=== PATIENT | female | born 1945 | race Caucasian/White ===

== ENCOUNTER 2017-09-01 16:55 | Inpatient (IN) | payer MEDICARE, SELFPAY ==
[2017-09-01] MEDS ORDERED: ACETAMINOPHEN 500 MG TAB PO (18:15)
[2017-09-01] MEDS ORDERED: BISACODYL 10 MG SUPP PR (18:15)
[2017-09-01] MEDS ORDERED: ONDANSETRON 4MG/2ML VIAL (J2405) IV (18:15)
[2017-09-01] MEDS: SINEMET 25-100 MG TAB PO (21:19)
[2017-09-01] MEDS: DOCUSATE SODIUM 100 MG CAP PO (21:19)
[2017-09-01] MEDS: PRAMIPEXOLE 1 MG TAB PO (21:19)
[2017-09-01] MEDS: AMANTADINE 100 MG CAP PO (21:19)
[2017-09-01] MEDS: SENOKOT S TAB PO (21:19)
[2017-09-01] MEDS: ENTACAPONE 200MG TABLET (COMTAN) PO (21:20)
[2017-09-01] MEDS: MORPHINE 4 MG/ML 1ML VIAL/SYRINGE (J2270) IV (21:50)
[2017-09-02 06:10] LABS: BASO % 0.4 % (0.0-1.0); EOS # 0.1 10^3/uL (0.0-0.50); EOS % 1.1 % (0.0-3.0); HEMATOCRIT 39.7 % (36.0-47.0); HEMOGLOBIN 13.9 g/dl (12.0-15.5); IMMATURE GRANULOCYTE % 0.9 % (0-3.0); LYMPH # 1.6 10^3/uL (1.5-4.5); LYMPH % 19.2 % (24.0-44.0); MEAN CORPUSCULAR HEMOGLOBIN 29.8 pg (27.0-33.0); MONO # 0.9 10^3/uL (0.0-0.8); MONO % 10.9 % (0.0-5.0); NEUTROPHILS # 5.5 10^3/uL (1.8-7.7); NEUTROPHILS % 67.5 % (36.0-66.0); PLATELET COUNT, AUTOMATED 367 10^3/uL (150-450); RED BLOOD COUNT 4.67 10^6/uL (4.00-5.40); RED CELL DISTRIBUTION WIDTH 12.1 % (11.5-14.5); WHITE BLOOD COUNT 8.1 10^3/uL (4.0-10.0)
[2017-09-02 06:24] LABS: AMMONIA 16 uMOL/L (<32)
[2017-09-02 06:33] LABS: ALBUMIN 2.7 GM/DL (3.2-5.2); ALBUMIN/GLOBULIN RATIO 0.71 (1.00-1.93); ALKALINE PHOSPHATASE 103 U/L (45-117); ALT/SGPT < 6 U/L (12-78); ANION GAP 9 MEQ/L (8-16); AST/SGOT 15 U/L (7-37); BILIRUBIN,TOTAL 0.8 MG/DL (0.2-1.0); BLOOD UREA NITROGEN 14 MG/DL (7-18); CARBON DIOXIDE LEVEL 27 MEQ/L (21-32); CHLORIDE LEVEL 106 MEQ/L (98-107); CREATININE FOR GFR 0.88 MG/DL (0.55-1.30); GLOMERULAR FILTRATION RATE > 60.0 (>39); GLUCOSE, FASTING 89 MG/DL (70-100); POTASSIUM SERUM 4.1 MEQ/L (3.5-5.1); SODIUM LEVEL 142 MEQ/L (136-145); TOTAL PROTEIN 6.5 GM/DL (6.4-8.2)
[2017-09-02 09:17] LABS: APPEARANCE, URINE CLEAR (CLEAR); BACTERIA, URINE AUTO NEGATIVE (NEGATIVE); BILIRUBIN, URINE AUTO NEGATIVE (NEGATIVE); BLOOD, URINE BLOOD NEGATIVE (NEGATIVE); COLOR, URINE YELLOW (YELLOW); GLUCOSE, URINE (UA) AUTO NEGATIVE (NEGATIVE); KETONE, URINE AUTO 1+ mg/dL (NEGATIVE); LEUKOCYTE ESTERASE, URINE AUTO NEGATIVE (NEGATIVE); MUCUS, URINE SMALL (NEGATIVE); NITRITE, URINE AUTO NEGATIVE (NEGATIVE); PROTEIN, URINE AUTO NEGATIVE (NEGATIVE); RBC, URINE AUTO 2 /HPF (0-3); SPECIFIC GRAVITY URINE AUTO 1.013 (1.002-1.035); SQUAMOUS EPITHELIAL CELL UR AU 0 /HPF (0-6); UROBILINOGEN, URINE AUTO 0.2 mg/dL (0.0-2.0); WBC, URINE AUTO 1 /HPF (0-3)
[2017-09-02] MEDS: PRAMIPEXOLE 1 MG TAB PO (10:36)
[2017-09-02] MEDS: LACTULOSE 20 GM/30 ML SYRUP UD PO (10:36)
[2017-09-02] MEDS: DOCUSATE SODIUM 100 MG CAP PO (10:36)
[2017-09-02] MEDS: ENOXAPARIN 40 MG/0.4 ML SYRINGE (J1650) SC (10:36)
[2017-09-02] MEDS: SENOKOT S TAB PO (10:37)
[2017-09-02] MEDS: AMANTADINE 100 MG CAP PO (10:37)
[2017-09-02] MEDS: ENTACAPONE 200MG TABLET (COMTAN) PO (10:37)
[2017-09-02] MEDS: SINEMET 25-100 MG TAB PO (10:46)
[2017-09-02 13:15] LABS: CPK CREATINE PHOSPHOKINASE 29 U/L (26-192); MB/CK RELATIVE INDEX 6.89 (< OR =4); TROPONIN I 0.33 NG/ML (< 0.10)
[2017-09-02] MEDS ORDERED: NITROGLYCERIN 0.4 MG SUBL TABLET As Ordered (15:08)
[2017-09-02] MEDS: NITROGLYCERIN 0.3 MG SUBL TAB SL (15:11)
[2017-09-02] MEDS ORDERED: HEPARIN SOD (PORCINE) 5000 UNITS/ML VIAL IV (15:30)
[2017-09-02] MEDS ORDERED: HEPARIN 25,000 UNITS/250 ML D5W BAG (100 UNITS/ML) As Ordered (15:32)
[2017-09-02 15:36] LABS: CK-MB VALUE MASS 15.5 NG/ML (<3.6); CPK CREATINE PHOSPHOKINASE 108 U/L (26-192); MB/CK RELATIVE INDEX 14.35 (< OR =4)
[2017-09-02] MEDS: NS 1,000 ML IV (15:38)
[2017-09-02] MEDS: HEPARIN DRIP 25,000 UNITS in APPROPRIATE DILUENT 1 EA IV (15:39)
[2017-09-02] MEDS: HEPARIN SOD (PORCINE) 5000 UNITS/ML VIAL IV (15:40)
[2017-09-02 15:42] LABS: TROPONIN I 3.82 NG/ML (< 0.10)
[2017-09-02] MEDS ORDERED: NOREPINEPHRINE 4 MG/4 ML AMP As Ordered (15:49)
[2017-09-02] MEDS ORDERED: MORPHINE 4 MG/ML 1ML VIAL/SYRINGE (J2270) IV (16:15)
[2017-09-02] MEDS: MORPHINE 4 MG/ML 1ML VIAL/SYRINGE (J2270) IV (16:15)
[2017-09-02] MEDS ORDERED: LACTULOSE 20 GM/30 ML SYRUP UD PO (18:00)
== END 2017-09-02 16:38 | disposition short-term general hospital (02) | DRG 91 ==
LOC: M MSPAV 16:55
DX: G92 Toxic encephalopathy (principal); I21.4 Non-ST elevation (NSTEMI) myocardial infarction; N39.0 Urinary tract infection, site not specified; G20 Parkinson's disease; N20.0 Calculus of kidney; T42.8X5A Adverse effect of antiparkinsonism drugs and other central muscle-tone depressants, initial encounter; T48.205A Adverse effect of unspecified drugs acting on muscles, initial encounter; N28.1 Cyst of kidney, acquired; K59.00 Constipation, unspecified; Z79.899 Other long term (current) drug therapy; Z88.1 Allergy status to other antibiotic agents; Z88.8 Allergy status to other drugs, medicaments and biological substances; Z91.010 Allergy to peanuts

== ENCOUNTER 2017-09-05 13:40 | Inpatient (IN) | payer MEDICARE ==
[~2017-09-05 13:40] MED LIST: BISACODYL 10 MG SUPP PR; BISACODYL 5 MG TAB PO; ENTACAPONE 200MG TABLET (COMTAN) PO; IBUPROFEN 400 MG TAB PO; MIRALAX *UNIT DOSE* 17GM PACKET PO; MOM 30ML SUSPENSION UDC PO; NITROGLYCERIN 0.4 MG SUBL TABLET SL; ONDANSETRON 4 MG TAB (S0181) PO; SINEMET 25-100 MG TAB PO
[2017-09-05] MEDS ORDERED: PRAMIPEXOLE 0.25 MG TAB PO (16:00)
[2017-09-05] MEDS ORDERED: SINEMET 25-100 MG TAB PO ×2 (16:00)
[2017-09-05] MEDS ORDERED: PRAMIPEXOLE 1 MG TAB PO (16:00)
[2017-09-05] MEDS ORDERED: PILL CRUSHER/CUTTER 1 EACH XX (16:30)
[2017-09-05] MEDS: SINEMET 25-100 MG TAB PO ×2 (16:39→20:40)
[2017-09-05] MEDS: BISACODYL 5 MG TAB PO (16:40)
[2017-09-05] MEDS: MIRALAX *UNIT DOSE* 17GM PACKET PO (16:40)
[2017-09-05] MEDS: PRAMIPEXOLE 0.25 MG TAB PO (17:56)
[2017-09-05] MEDS: ENTACAPONE 200MG TABLET (COMTAN) PO ×2 (17:57→20:40)
[2017-09-05 20:11] LABS: KETONE, URINE AUTO RFX NEGATIVE (NEGATIVE); MUCUS, URINE RFX SMALL (NEGATIVE); NITRITE, URINE AUTO RFX NEGATIVE (NEGATIVE); RBC, URINE AUTO RFX 3 /HPF (0-3); SPECIFIC GRAVITY UR AUTO RFX 1.025 (1.002-1.035); SQUAM EPITHELIAL CELL UR AURFX 5 /HPF (0-6)
[2017-09-05 20:12] LABS: LEUKOCYTE ESTERASE UR AUTO RFX 2+ (NEGATIVE); WBC, URINE AUTO RFX 12 /HPF (0-3)
[2017-09-05] MEDS: FAMOTIDINE 20 MG TAB PO (20:40)
[2017-09-05] MEDS: ATORVASTATIN 20 MG TAB PO (20:40)
[2017-09-05] MEDS: NITROFURANTOIN (MACROBID) 100 MG CAP PO (20:40)
[2017-09-05] MEDS: ACETAMINOPHEN TAB 650MG DOSE (2X325MG) PO (20:41)
[2017-09-05] MEDS ORDERED: AMANTADINE 100 MG CAP PO (21:00)
[2017-09-05] MEDS: ONDANSETRON 4 MG ORAL DISINTEGRATING TAB (Q0162 PER 1MG) SL (21:08)
[2017-09-06] MEDS: PRAMIPEXOLE 0.25 MG TAB PO (06:00)
[2017-09-06] MEDS: ENTACAPONE 200MG TABLET (COMTAN) PO (06:00)
[2017-09-06] MEDS: SINEMET 25-100 MG TAB PO (06:00)
[2017-09-06] MEDS: ONDANSETRON 4 MG ORAL DISINTEGRATING TAB (Q0162 PER 1MG) SL (06:00)
[2017-09-06 06:41] LABS: BASO % 0.4 % (0.0-1.0); EOS # 0.1 10^3/uL (0.0-0.50); EOS % 1.1 % (0.0-3.0); HEMATOCRIT 41.5 % (36.0-47.0); HEMOGLOBIN 14.2 g/dl (12.0-15.5); IMMATURE GRANULOCYTE % 0.8 % (0-3.0); LYMPH # 1.6 10^3/uL (1.5-4.5); LYMPH % 16.5 % (24.0-44.0); MEAN CORPUSCULAR HEMOGLOBIN 29.7 pg (27.0-33.0); MEAN CORPUSCULAR HGB CONC 34.2 g/dl (32.0-36.5); MEAN CORPUSCULAR VOLUME 86.8 fl (80.0-96.0); MONO # 0.7 10^3/uL (0.0-0.8); MONO % 7.2 % (0.0-5.0); NEUTROPHILS # 7.1 10^3/uL (1.8-7.7); PLATELET COUNT, AUTOMATED 466 10^3/uL (150-450); RED BLOOD COUNT 4.78 10^6/uL (4.00-5.40); RED CELL DISTRIBUTION WIDTH 12.2 % (11.5-14.5); WHITE BLOOD COUNT 9.6 10^3/uL (4.0-10.0)
[2017-09-06 06:58] LABS: ALBUMIN 2.7 GM/DL (3.2-5.2); ALBUMIN/GLOBULIN RATIO 0.55 (1.00-1.93); ALKALINE PHOSPHATASE 97 U/L (45-117); ALT/SGPT 11 U/L (12-78); ANION GAP 10 MEQ/L (8-16); AST/SGOT 21 U/L (7-37); BILIRUBIN,TOTAL 0.7 MG/DL (0.2-1.0); BLOOD UREA NITROGEN 28 MG/DL (7-18); CALCIUM LEVEL 8.7 MG/DL (8.8-10.2); CARBON DIOXIDE LEVEL 26 MEQ/L (21-32); CHLORIDE LEVEL 107 MEQ/L (98-107); CREATININE FOR GFR 0.91 MG/DL (0.55-1.30); GLOMERULAR FILTRATION RATE > 60.0 (>39); GLUCOSE, FASTING 106 MG/DL (70-100); POTASSIUM SERUM 3.5 MEQ/L (3.5-5.1); SODIUM LEVEL 143 MEQ/L (136-145); TOTAL PROTEIN 7.6 GM/DL (6.4-8.2)
[2017-09-06] MEDS ORDERED: NITROGLYCERIN 0.4 MG SUBL TABLET SL (07:45)
[2017-09-06] MEDS: CALCIUM CARBONATE 500 MG CHEW U/D PO (07:46)
[2017-09-06 08:53] LABS: TROPONIN I 1.08 NG/ML (< 0.10)
[2017-09-06] MEDS: NITROFURANTOIN (MACROBID) 100 MG CAP PO (09:56)
[2017-09-06] MEDS: ASPIRIN 81 MG ENTERIC TAB PO (09:56)
[2017-09-06] MEDS: POTASSIUM CHLORIDE 10 MEQ SR TABLET PO (09:56)
[2017-09-06] MEDS: CLOPIDOGREL 75 MG TAB PO (09:56)
[2017-09-06] MEDS: DOCUSATE SODIUM 100 MG CAP PO (09:56)
[2017-09-06] MEDS: CYANOCOBALAMIN 500 MCG TAB PO (09:56)
[2017-09-06] MEDS: MIRALAX *UNIT DOSE* 17GM PACKET PO (09:57)
[2017-09-06] MEDS: VITAMIN D 1,000 INTERNATIONAL UNITS TABLET PO (09:57)
[2017-09-06] MEDS: FAMOTIDINE 20 MG TAB PO (09:57)
== END 2017-09-06 10:38 | disposition short-term general hospital (02) | DRG 56 ==
LOC: M PM&R 13:40
DX: G20 Parkinson's disease (principal); I21.3 ST elevation (STEMI) myocardial infarction of unspecified site; N39.0 Urinary tract infection, site not specified; I51.81 Takotsubo syndrome; K59.09 Other constipation; E87.6 Hypokalemia; R41.0 Disorientation, unspecified; R13.10 Dysphagia, unspecified; M54.5 Low back pain; R53.81 Other malaise; I70.0 Atherosclerosis of aorta; R26.81 Unsteadiness on feet; R44.1 Visual hallucinations; K21.9 Gastro-esophageal reflux disease without esophagitis; I25.10 Atherosclerotic heart disease of native coronary artery without angina pectoris; J30.9 Allergic rhinitis, unspecified; E78.5 Hyperlipidemia, unspecified; Z79.82 Long term (current) use of aspirin; Z88.1 Allergy status to other antibiotic agents; Z88.8 Allergy status to other drugs, medicaments and biological substances; Z91.010 Allergy to peanuts; Z79.899 Other long term (current) drug therapy; Z98.1 Arthrodesis status

== ENCOUNTER 2017-09-06 10:42 | Inpatient (IN) | payer MEDICARE ==
[~2017-09-06 10:42] MED LIST changes: -BISACODYL 10 MG SUPP PR; -BISACODYL 5 MG TAB PO; -ENTACAPONE 200MG TABLET (COMTAN) PO; -IBUPROFEN 400 MG TAB PO; -MOM 30ML SUSPENSION UDC PO; -NITROGLYCERIN 0.4 MG SUBL TABLET SL; -ONDANSETRON 4 MG TAB (S0181) PO; -SINEMET 25-100 MG TAB PO
[2017-09-06 11:28] LABS: TROPONIN I 1.13 NG/ML (< 0.10)
[2017-09-06] MEDS: CALCIUM CARBONATE 500 MG CHEW U/D PO ×2 (12:42→17:03)
[2017-09-06] MEDS: ENOXAPARIN 80 MG/0.8 ML SYRINGE (J1650) SC (12:42)
[2017-09-06] MEDS: PRAMIPEXOLE 0.25 MG TAB PO ×3 (12:42→21:37)
[2017-09-06] MEDS: ONDANSETRON 4MG/2ML VIAL (J2405) IV ×2 (12:42→18:08)
[2017-09-06] MEDS: ENTACAPONE 200MG TABLET (COMTAN) PO ×3 (12:43→20:39)
[2017-09-06] MEDS: SINEMET 25-100 MG TAB PO ×3 (12:43→20:39)
[2017-09-06] MEDS: METOPROLOL TART 12.5 MG PER 1/2 TAB PO ×2 (12:43→17:04)
[2017-09-06] MEDS: PANTOPRAZOLE 40MG TAB (PROTONIX) PO (12:43)
[2017-09-06 13:27] LABS: CK-MB VALUE MASS 2.9 NG/ML (<3.6); CPK CREATINE PHOSPHOKINASE 60 U/L (26-192); MB/CK RELATIVE INDEX 4.83 (< OR =4)
[2017-09-06] MEDS: MIRALAX *UNIT DOSE* 17GM PACKET PO (18:07)
[2017-09-06] MEDS: SENOKOT S TAB PO (18:07)
[2017-09-06 20:32] LABS: CK-MB VALUE MASS 2.2 NG/ML (<3.6); CPK CREATINE PHOSPHOKINASE 49 U/L (26-192); MB/CK RELATIVE INDEX 4.48 (< OR =4); TROPONIN I 0.92 NG/ML (< 0.10)
[2017-09-06] MEDS ORDERED: AMANTADINE 100 MG CAP PO (21:00)
[2017-09-06] MEDS: ATORVASTATIN 20 MG TAB PO (21:36)
[2017-09-06] MEDS: DOCUSATE SODIUM 100 MG CAP PO (21:36)
[2017-09-06] MEDS: QUEtiapine FUMARATE 25 MG TAB PO (21:37)
[2017-09-07] MEDS: ENOXAPARIN 60 MG/0.6 ML SYR (J1650) SC ×3 (00:05→23:00)
[2017-09-07] MEDS: ONDANSETRON 4MG/2ML VIAL (J2405) IV (01:00)
[2017-09-07 04:43] LABS: BASO % 0.4 % (0.0-1.0); EOS # 0.1 10^3/uL (0.0-0.50); HEMATOCRIT 40.3 % (36.0-47.0); HEMOGLOBIN 13.8 g/dl (12.0-15.5); IMMATURE GRANULOCYTE % 0.7 % (0-3.0); LYMPH # 1.6 10^3/uL (1.5-4.5); LYMPH % 17.7 % (24.0-44.0); MEAN CORPUSCULAR HEMOGLOBIN 29.8 pg (27.0-33.0); MEAN CORPUSCULAR HGB CONC 34.2 g/dl (32.0-36.5); MONO # 0.7 10^3/uL (0.0-0.8); MONO % 7.8 % (0.0-5.0); NEUTROPHILS # 6.5 10^3/uL (1.8-7.7); NEUTROPHILS % 72.4 % (36.0-66.0); PLATELET COUNT, AUTOMATED 415 10^3/uL (150-450); RED BLOOD COUNT 4.63 10^6/uL (4.00-5.40); RED CELL DISTRIBUTION WIDTH 12.2 % (11.5-14.5); WHITE BLOOD COUNT 8.9 10^3/uL (4.0-10.0)
[2017-09-07] MEDS: METOPROLOL TART 12.5 MG PER 1/2 TAB PO ×5 (05:03→23:53)
[2017-09-07 05:10] LABS: ALBUMIN 2.6 GM/DL (3.2-5.2); ALBUMIN/GLOBULIN RATIO 0.57 (1.00-1.93); ALKALINE PHOSPHATASE 91 U/L (45-117); ALT/SGPT 8 U/L (12-78); ANION GAP 10 MEQ/L (8-16); AST/SGOT 14 U/L (7-37); BILIRUBIN,TOTAL 0.9 MG/DL (0.2-1.0); BLOOD UREA NITROGEN 25 MG/DL (7-18); CALCIUM LEVEL 8.8 MG/DL (8.8-10.2); CARBON DIOXIDE LEVEL 25 MEQ/L (21-32); CHLORIDE LEVEL 108 MEQ/L (98-107); CK-MB VALUE MASS 1.6 NG/ML (<3.6); CPK CREATINE PHOSPHOKINASE 39 U/L (26-192); CREATININE FOR GFR 0.91 MG/DL (0.55-1.30); GLOMERULAR FILTRATION RATE > 60.0 (>39); GLUCOSE, FASTING 99 MG/DL (70-100); MAGNESIUM LEVEL 1.9 MG/DL (1.8-2.4); POTASSIUM SERUM 3.8 MEQ/L (3.5-5.1); SODIUM LEVEL 143 MEQ/L (136-145); TOTAL PROTEIN 7.2 GM/DL (6.4-8.2); TROPONIN I 0.68 NG/ML (< 0.10)
[2017-09-07] MEDS: SINEMET 25-100 MG TAB PO ×4 (06:00→21:11)
[2017-09-07] MEDS: ENTACAPONE 200MG TABLET (COMTAN) PO ×4 (06:00→21:10)
[2017-09-07] MEDS ORDERED: ONDANSETRON 4MG/2ML VIAL (J2405) IV (06:45)
[2017-09-07] MEDS: CALCIUM CARBONATE 500 MG CHEW U/D PO ×3 (08:00→18:00)
[2017-09-07] MEDS: PANTOPRAZOLE 40MG TAB (PROTONIX) PO (09:00)
[2017-09-07] MEDS: POTASSIUM CHLORIDE 10 MEQ SR TABLET PO (09:00)
[2017-09-07] MEDS: DOCUSATE SODIUM 100 MG CAP PO ×2 (09:00→21:11)
[2017-09-07] MEDS: ACETAMINOPHEN TAB 650MG DOSE (2X325MG) PO ×2 (09:24→16:10)
[2017-09-07] MEDS: ASPIRIN 81 MG ENTERIC TAB PO (10:55)
[2017-09-07] MEDS: CLOPIDOGREL 75 MG TAB PO (10:56)
[2017-09-07 15:03] LABS: CPK CREATINE PHOSPHOKINASE 41 U/L (26-192); TROPONIN I 0.53 NG/ML (< 0.10)
[2017-09-07 15:04] LABS: CK-MB VALUE MASS 2.3 NG/ML (<3.6)
[2017-09-07] MEDS ORDERED: BIOFREEZE (PATIENT'S OWN MED) TOP (19:30)
[2017-09-07] MEDS: QUEtiapine FUMARATE 25 MG TAB PO (21:12)
[2017-09-07] MEDS: ATORVASTATIN 20 MG TAB PO (21:13)
[2017-09-07 21:34] LABS: CK-MB VALUE MASS 2.7 NG/ML (<3.6); CPK CREATINE PHOSPHOKINASE 40 U/L (26-192); MB/CK RELATIVE INDEX 6.75 (< OR =4); TROPONIN I 0.46 NG/ML (< 0.10)
[2017-09-08] MEDS: UNRESOLVED PATIENT OWN MED ORDER XX (00:01)
[2017-09-08] MEDS: ENTACAPONE 200MG TABLET (COMTAN) PO ×4 (06:00→20:28)
[2017-09-08] MEDS: SINEMET 25-100 MG TAB PO ×4 (06:00→20:28)
[2017-09-08] MEDS: METOPROLOL TART 12.5 MG PER 1/2 TAB PO ×3 (06:00→18:19)
[2017-09-08] MEDS: ACETAMINOPHEN TAB 650MG DOSE (2X325MG) PO ×2 (06:50→18:19)
[2017-09-08] MEDS: DOCUSATE SODIUM 100 MG CAP PO ×2 (08:52→20:27)
[2017-09-08] MEDS: PANTOPRAZOLE 40MG TAB (PROTONIX) PO (08:52)
[2017-09-08] MEDS: CLOPIDOGREL 75 MG TAB PO (08:52)
[2017-09-08] MEDS: POTASSIUM CHLORIDE 10 MEQ SR TABLET PO (08:52)
[2017-09-08] MEDS: CALCIUM CARBONATE 500 MG CHEW U/D PO ×3 (08:52→18:00)
[2017-09-08] MEDS: ASPIRIN 81 MG ENTERIC TAB PO (08:53)
[2017-09-08] MEDS: ENOXAPARIN 60 MG/0.6 ML SYR (J1650) SC ×2 (11:31→22:48)
[2017-09-08 13:17] LABS: HEMATOCRIT 44.1 % (36.0-47.0); HEMOGLOBIN 15.3 g/dl (12.0-15.5); MEAN CORPUSCULAR HEMOGLOBIN 29.7 pg (27.0-33.0); MEAN CORPUSCULAR HGB CONC 34.7 g/dl (32.0-36.5); MEAN CORPUSCULAR VOLUME 85.6 fl (80.0-96.0); PLATELET COUNT, AUTOMATED 499 10^3/uL (150-450); RED BLOOD COUNT 5.15 10^6/uL (4.00-5.40); RED CELL DISTRIBUTION WIDTH 12.1 % (11.5-14.5); WHITE BLOOD COUNT 13.3 10^3/uL (4.0-10.0)
[2017-09-08 13:34] LABS: ESTIMATED AVERAGE GLUCOSE 108 MG/DL (60-110); HEMOGLOBIN A1c 5.4 %
[2017-09-08 13:54] LABS: ANION GAP 12 MEQ/L (8-16); BLOOD UREA NITROGEN 34 MG/DL (7-18); CALCIUM LEVEL 9.1 MG/DL (8.8-10.2); CARBON DIOXIDE LEVEL 21 MEQ/L (21-32); CHLORIDE LEVEL 110 MEQ/L (98-107); CREATININE FOR GFR 0.93 MG/DL (0.55-1.30); GLOMERULAR FILTRATION RATE > 60.0 (>39); GLUCOSE, FASTING 126 MG/DL (70-100); POTASSIUM SERUM 4.4 MEQ/L (3.5-5.1); SODIUM LEVEL 143 MEQ/L (136-145)
[2017-09-08] MEDS ORDERED: SLF 3 ML SYR IV (17:00)
[2017-09-08] MEDS: ATORVASTATIN 20 MG TAB PO (20:27)
[2017-09-08] MEDS: clonazePAM 0.5 MG TAB PO (20:28)
[2017-09-08] MEDS: QUEtiapine FUMARATE 25 MG TAB PO (20:28)
[2017-09-08 20:40] LABS: BEDSIDE GLUCOSE 171 MG/DL (83-110)
[2017-09-08] MEDS: SLF 3 ML SYR IV (22:47)
[2017-09-09] MEDS: SINEMET 25-100 MG TAB PO ×4 (06:00→20:24)
[2017-09-09] MEDS: SLF 3 ML SYR IV ×3 (06:00→22:00)
[2017-09-09] MEDS: ENTACAPONE 200MG TABLET (COMTAN) PO ×4 (06:00→20:24)
[2017-09-09] MEDS: METOPROLOL TART 12.5 MG PER 1/2 TAB PO ×5 (06:00→23:39)
[2017-09-09] MEDS: CALCIUM CARBONATE 500 MG CHEW U/D PO ×3 (07:30→17:10)
[2017-09-09 07:39] LABS: BASO # 0.1 10^3/uL (0.0-0.2); BASO % 0.5 % (0.0-1.0); EOS % 0.4 % (0.0-3.0); HEMATOCRIT 42.4 % (36.0-47.0); HEMOGLOBIN 14.8 g/dl (12.0-15.5); IMMATURE GRANULOCYTE % 0.6 % (0-3.0); LYMPH # 1.4 10^3/uL (1.5-4.5); LYMPH % 13.1 % (24.0-44.0); MEAN CORPUSCULAR HEMOGLOBIN 29.5 pg (27.0-33.0); MEAN CORPUSCULAR HGB CONC 34.9 g/dl (32.0-36.5); MEAN CORPUSCULAR VOLUME 84.6 fl (80.0-96.0); MONO # 0.8 10^3/uL (0.0-0.8); MONO % 7.4 % (0.0-5.0); NEUTROPHILS # 8.5 10^3/uL (1.8-7.7); PLATELET COUNT, AUTOMATED 508 10^3/uL (150-450); RED BLOOD COUNT 5.01 10^6/uL (4.00-5.40); RED CELL DISTRIBUTION WIDTH 12.4 % (11.5-14.5); WHITE BLOOD COUNT 10.9 10^3/uL (4.0-10.0)
[2017-09-09 08:00] LABS: ALBUMIN 2.8 GM/DL (3.2-5.2); ALBUMIN/GLOBULIN RATIO 0.56 (1.00-1.93); ALKALINE PHOSPHATASE 103 U/L (45-117); ALT/SGPT 12 U/L (12-78); ANION GAP 10 MEQ/L (8-16); AST/SGOT 14 U/L (7-37); BILIRUBIN,TOTAL 0.8 MG/DL (0.2-1.0); BLOOD UREA NITROGEN 40 MG/DL (7-18); CARBON DIOXIDE LEVEL 22 MEQ/L (21-32); CHLORIDE LEVEL 112 MEQ/L (98-107); CHOLESTEROL LEVEL 92 MG/DL (<200); CHOLESTEROL RISK RATIO 3.066 (<5); CREATININE FOR GFR 1.02 MG/DL (0.55-1.30); GLOMERULAR FILTRATION RATE 56.6 (>39); GLUCOSE, FASTING 127 MG/DL (70-100); HDL CHOLESTEROL 30 MG/DL (>40); LDL CHOLESTEROL 31.6 MG/DL (<100); MAGNESIUM LEVEL 2.2 MG/DL (1.8-2.4); NON-HDL-C 62 MG/DL; POTASSIUM SERUM 3.9 MEQ/L (3.5-5.1); SODIUM LEVEL 144 MEQ/L (136-145); TOTAL PROTEIN 7.8 GM/DL (6.4-8.2); TRIGLYCERIDES LEVEL 152 MG/DL (<150)
[2017-09-09] MEDS: ASPIRIN 81 MG ENTERIC TAB PO (09:11)
[2017-09-09] MEDS: CLOPIDOGREL 75 MG TAB PO (09:12)
[2017-09-09] MEDS: DOCUSATE SODIUM 100 MG CAP PO ×2 (09:12→20:24)
[2017-09-09] MEDS: POTASSIUM CHLORIDE 10 MEQ SR TABLET PO (09:12)
[2017-09-09] MEDS: PANTOPRAZOLE 40MG TAB (PROTONIX) PO (09:12)
[2017-09-09] MEDS: ACETAMINOPHEN TAB 650MG DOSE (2X325MG) PO (11:08)
[2017-09-09] MEDS: ATORVASTATIN 20 MG TAB PO (20:24)
[2017-09-09] MEDS: clonazePAM 0.5 MG TAB PO (20:24)
[2017-09-09] MEDS: QUEtiapine FUMARATE 25 MG TAB PO (20:24)
[2017-09-10] MEDS: METOPROLOL TART 12.5 MG PER 1/2 TAB PO ×3 (05:37→17:00)
[2017-09-10] MEDS: SINEMET 25-100 MG TAB PO ×4 (05:38→20:18)
[2017-09-10] MEDS: ENTACAPONE 200MG TABLET (COMTAN) PO ×4 (05:38→20:18)
[2017-09-10] MEDS: SLF 3 ML SYR IV ×3 (05:38→21:21)
[2017-09-10 05:40] LABS: BASO % 0.3 % (0.0-1.0); EOS % 0.2 % (0.0-3.0); HEMATOCRIT 45.1 % (36.0-47.0); HEMOGLOBIN 15.2 g/dl (12.0-15.5); IMMATURE GRANULOCYTE % 0.5 % (0-3.0); LYMPH # 1.7 10^3/uL (1.5-4.5); LYMPH % 14.3 % (24.0-44.0); MEAN CORPUSCULAR HEMOGLOBIN 29.1 pg (27.0-33.0); MEAN CORPUSCULAR HGB CONC 33.7 g/dl (32.0-36.5); MEAN CORPUSCULAR VOLUME 86.4 fl (80.0-96.0); MONO # 0.9 10^3/uL (0.0-0.8); MONO % 7.3 % (0.0-5.0); NEUTROPHILS # 9.3 10^3/uL (1.8-7.7); NEUTROPHILS % 77.4 % (36.0-66.0); PLATELET COUNT, AUTOMATED 488 10^3/uL (150-450); RED BLOOD COUNT 5.22 10^6/uL (4.00-5.40); RED CELL DISTRIBUTION WIDTH 12.4 % (11.5-14.5)
[2017-09-10 06:02] LABS: ALKALINE PHOSPHATASE 111 U/L (45-117); ALT/SGPT 11 U/L (12-78); AST/SGOT 20 U/L (7-37); BILIRUBIN,TOTAL 0.8 MG/DL (0.2-1.0); BLOOD UREA NITROGEN 46 MG/DL (7-18); CALCIUM LEVEL 9.5 MG/DL (8.8-10.2); CARBON DIOXIDE LEVEL 20 MEQ/L (21-32); CHLORIDE LEVEL 112 MEQ/L (98-107); CREATININE FOR GFR 1.01 MG/DL (0.55-1.30); GLUCOSE, FASTING 124 MG/DL (70-100); MAGNESIUM LEVEL 2.4 MG/DL (1.8-2.4); POTASSIUM SERUM 4.3 MEQ/L (3.5-5.1); TOTAL PROTEIN 8.2 GM/DL (6.4-8.2)
[2017-09-10 06:06] LABS: ALBUMIN 2.9 GM/DL (3.2-5.2); ALBUMIN/GLOBULIN RATIO 0.55 (1.00-1.93)
[2017-09-10 07:24] LABS: ANION GAP 14 MEQ/L (8-16); SODIUM LEVEL 146 MEQ/L (136-145)
[2017-09-10] MEDS: UNRESOLVED PATIENT OWN MED ORDER XX ×2 (07:38)
[2017-09-10] MEDS: CALCIUM CARBONATE 500 MG CHEW U/D PO ×3 (11:04→17:42)
[2017-09-10] MEDS: MIRALAX *UNIT DOSE* 17GM PACKET PO (11:04)
[2017-09-10] MEDS: CLOPIDOGREL 75 MG TAB PO (11:05)
[2017-09-10] MEDS: ASPIRIN 81 MG ENTERIC TAB PO (11:07)
[2017-09-10] MEDS: ACETAMINOPHEN TAB 650MG DOSE (2X325MG) PO (11:07)
[2017-09-10] MEDS: DOCUSATE SODIUM 100 MG CAP PO ×2 (11:08→20:19)
[2017-09-10] MEDS: POTASSIUM CHLORIDE 10 MEQ SR TABLET PO (11:08)
[2017-09-10] MEDS: PANTOPRAZOLE 40MG TAB (PROTONIX) PO (11:08)
[2017-09-10] MEDS: NS 1,000 ML IV (12:18)
[2017-09-10] MEDS: MORPHINE 4 MG/ML 1ML VIAL/SYRINGE (J2270) IV (20:18)
[2017-09-10] MEDS: QUEtiapine FUMARATE 25 MG TAB PO (20:18)
[2017-09-10] MEDS: ATORVASTATIN 20 MG TAB PO (20:18)
[2017-09-11] MEDS: NS 1,000 ML IV (00:30)
[2017-09-11] MEDS: MORPHINE 4 MG/ML 1ML VIAL/SYRINGE (J2270) IV ×3 (00:56→17:39)
[2017-09-11] MEDS: METOPROLOL TART 12.5 MG PER 1/2 TAB PO ×2 (06:00)
[2017-09-11] MEDS: SLF 3 ML SYR IV (06:00)
[2017-09-11] MEDS: ENTACAPONE 200MG TABLET (COMTAN) PO ×4 (06:00→20:00)
[2017-09-11] MEDS: SINEMET 25-100 MG TAB PO ×4 (06:00→20:00)
[2017-09-11 07:53] LABS: BASO # 0.1 10^3/uL (0.0-0.2); BASO % 0.4 % (0.0-1.0); EOS % 0.3 % (0.0-3.0); HEMATOCRIT 41.6 % (36.0-47.0); IMMATURE GRANULOCYTE % 0.6 % (0-3.0); LYMPH # 1.8 10^3/uL (1.5-4.5); LYMPH % 14.6 % (24.0-44.0); MEAN CORPUSCULAR HEMOGLOBIN 29.7 pg (27.0-33.0); MEAN CORPUSCULAR HGB CONC 33.7 g/dl (32.0-36.5); MEAN CORPUSCULAR VOLUME 88.1 fl (80.0-96.0); MONO # 0.9 10^3/uL (0.0-0.8); MONO % 7.1 % (0.0-5.0); NEUTROPHILS # 9.6 10^3/uL (1.8-7.7); PLATELET COUNT, AUTOMATED 498 10^3/uL (150-450); RED BLOOD COUNT 4.72 10^6/uL (4.00-5.40); RED CELL DISTRIBUTION WIDTH 12.3 % (11.5-14.5); WHITE BLOOD COUNT 12.4 10^3/uL (4.0-10.0)
[2017-09-11 08:13] LABS: ALBUMIN 2.7 GM/DL (3.2-5.2); ALBUMIN/GLOBULIN RATIO 0.54 (1.00-1.93); ALKALINE PHOSPHATASE 107 U/L (45-117); ALT/SGPT 10 U/L (12-78); ANION GAP 12 MEQ/L (8-16); AST/SGOT 22 U/L (7-37); BILIRUBIN,TOTAL 0.8 MG/DL (0.2-1.0); BLOOD UREA NITROGEN 46 MG/DL (7-18); CARBON DIOXIDE LEVEL 19 MEQ/L (21-32); CHLORIDE LEVEL 117 MEQ/L (98-107); CREATININE FOR GFR 0.89 MG/DL (0.55-1.30); GLOMERULAR FILTRATION RATE > 60.0 (>39); GLUCOSE, FASTING 110 MG/DL (70-100); MAGNESIUM LEVEL 2.2 MG/DL (1.8-2.4); SODIUM LEVEL 148 MEQ/L (136-145); TOTAL PROTEIN 7.7 GM/DL (6.4-8.2)
[2017-09-11] MEDS: PANTOPRAZOLE 40MG TAB (PROTONIX) PO (09:00)
[2017-09-11] MEDS: QUEtiapine FUMARATE 12.5 MG HALF-TAB PO (09:00)
[2017-09-11] MEDS: DOCUSATE SODIUM 100 MG CAP PO ×2 (09:00→20:05)
[2017-09-11] MEDS ORDERED: LORazepam 2 MG/ML VIAL (J2060) IV (10:00)
[2017-09-11] MEDS: MORPHINE 10MG/0.5ML ORAL CONCENTRATE SOLUTION U/D SL ×6 (10:39→22:13)
[2017-09-11] MEDS ORDERED: LORazepam 1 MG TAB As Ordered (13:10)
[2017-09-11] MEDS: HYOSCYAMINE SULFATE 0.125 MG SUBL TABLET SL (13:13)
[2017-09-11] MEDS: LORazepam 0.5 MG TAB PO ×2 (13:30→16:55)
[2017-09-11] MEDS ORDERED: MORPHINE 4 MG/ML 1ML VIAL/SYRINGE (J2270) IV (14:00)
[2017-09-11] MEDS: LORazepam 2 MG/ML VIAL (J2060) IV (19:42)
[2017-09-11] MEDS: QUEtiapine FUMARATE 25 MG TAB PO (20:05)
[2017-09-12] MEDS: LORazepam 2 MG/ML VIAL (J2060) IV ×7 (00:04→20:45)
[2017-09-12] MEDS: MORPHINE 4 MG/ML 1ML VIAL/SYRINGE (J2270) IV ×4 (02:47→23:13)
[2017-09-12] MEDS: SINEMET 25-100 MG TAB PO ×4 (03:37→20:00)
[2017-09-12] MEDS: ENTACAPONE 200MG TABLET (COMTAN) PO ×4 (03:37→20:00)
[2017-09-12] MEDS: PANTOPRAZOLE 40MG TAB (PROTONIX) PO (08:24)
[2017-09-12] MEDS: QUEtiapine FUMARATE 12.5 MG HALF-TAB PO (08:24)
[2017-09-12] MEDS: DOCUSATE SODIUM 100 MG CAP PO ×2 (08:24→21:00)
[2017-09-12] MEDS: MORPHINE 10MG/0.5ML ORAL CONCENTRATE SOLUTION U/D SL ×5 (09:10→20:45)
[2017-09-12] MEDS: QUEtiapine FUMARATE 25 MG TAB PO (21:00)
[2017-09-13] MEDS: MORPHINE 4 MG/ML 1ML VIAL/SYRINGE (J2270) IV ×3 (04:17→14:17)
[2017-09-13] MEDS: LORazepam 2 MG/ML VIAL (J2060) IV ×5 (04:17→18:29)
[2017-09-13] MEDS: ENTACAPONE 200MG TABLET (COMTAN) PO ×4 (05:34→07:21)
[2017-09-13] MEDS: SINEMET 25-100 MG TAB PO ×4 (05:34→18:25)
[2017-09-13] MEDS: DOCUSATE SODIUM 100 MG CAP PO ×2 (07:07→18:25)
[2017-09-13] MEDS: QUEtiapine FUMARATE 12.5 MG HALF-TAB PO (07:08)
[2017-09-13] MEDS: QUEtiapine FUMARATE 25 MG TAB PO (07:08)
[2017-09-13] MEDS: PANTOPRAZOLE 40MG TAB (PROTONIX) PO (07:08)
[2017-09-13] MEDS: SCOPOLAMINE 1MG TRANSDERMAL PATCH TOP (08:54)
[2017-09-13] MEDS: MORPHINE 10MG/0.5ML ORAL CONCENTRATE SOLUTION U/D SL ×3 (13:06→20:22)
== END 2017-09-13 21:25 | disposition expired ==
LOC: M PCU 09-07 05:48 → M MSPAV 09-11 15:15 → M ICU 10:42
DX: I21.11 ST elevation (STEMI) myocardial infarction involving right coronary artery (principal); I63.9 Cerebral infarction, unspecified; F02.81 Dementia in other diseases classified elsewhere, unspecified severity, with behavioral disturbance; Z51.5 Encounter for palliative care; Z66 Do not resuscitate; G31.83 Neurocognitive disorder with Lewy bodies; I95.9 Hypotension, unspecified; R13.10 Dysphagia, unspecified; K59.09 Other constipation; M54.9 Dorsalgia, unspecified; R44.1 Visual hallucinations; R26.81 Unsteadiness on feet; I35.0 Nonrheumatic aortic (valve) stenosis; K21.9 Gastro-esophageal reflux disease without esophagitis; I34.0 Nonrheumatic mitral (valve) insufficiency; I25.10 Atherosclerotic heart disease of native coronary artery without angina pectoris; E87.6 Hypokalemia; Z79.82 Long term (current) use of aspirin; Z79.899 Other long term (current) drug therapy; Z88.1 Allergy status to other antibiotic agents; Z88.8 Allergy status to other drugs, medicaments and biological substances; Z91.010 Allergy to peanuts; Z95.818 Presence of other cardiac implants and grafts